=== PATIENT | female | born 1990 | race Two or more races ===

== ENCOUNTER 2017-10-14 05:50 | Day surgery (SDC) | payer OTHER ==
[2017-10-14] VITALS (9 sets, daily range): BP systolic 91–113; BP diastolic 52–66
[~2017-10-14] VITALS: Ht 149.9 cm; Wt 59.0 kg
[~2017-10-14 05:50] MED LIST: ACETAMINOPHEN325 M1 ORAL
[2017-10-14] MEDS ORDERED: LR 1000ml ONE (05:51)
[2017-10-14] MEDS ORDERED: celeBREX 200mg Cap **SURGERY PATIENTS ONLY ORAL ONE (06:00)
[2017-10-14] MEDS ORDERED: ceFAZolin 1gm in D5W 55ml IVP ONE (06:00)
[2017-10-14] MEDS ORDERED: oxyCONTIN 20mg tab ORAL ONE (06:00)
[2017-10-14] MEDS ORDERED: Propofol 200mg/20ml IV ONE (06:45)
[2017-10-14] MEDS ORDERED: Lidocaine 1% MPF 10mg/ml 5ml ONE (06:45)
[2017-10-14] MEDS ORDERED: Ketorolac 30mg Inj ONE ×2 (06:45→07:16)
[2017-10-14] MEDS ORDERED: fentaNYL 100 mcg/2 mL IV ONE (06:46)
[2017-10-14] MEDS ORDERED: Midazolam 2mg/2ml Inj ONE (06:46)
--- NOTE | 2017-10-14 07:12 | Anethesia Preoperative Eval ---
Anesthesia Pre-op PMH/ROS General Date of Evaluation: October 14, 2017 Time of Evaluation: 07:11 Anesthesiologist: right knee pain ASA Score: ASA 1 Mallampati Score Class I : Soft palate, uvula, fauces, pillars visible Class II: Soft palate, uvula, fauces visible Class III: Soft palate, base of uvula visible Class IV: Only hard plate visible Mallampati Classification: Class II Surgeon: melissa Diagnosis: knee pain Surgical Procedure: Right Knee Scope Anesthesia History: none Family History: no anesthesia problems Allergies: Coded Allergies: No Known Allergies (Unverified , 10/13/17) Medications: see eMAR Past Medical History Cardiovascular: Denies: HTN, CAD, [place], valve dz, arrhythmia, other Pulmonary: Denies: asthma, COPD, ALETHA, other Gastrointestinal/Genitourinary: Denies: GERD, CRI, ESRD, other Neurologic/Psychiatric: Denies: dementia, CVA, depression/anxiety, TIA, other Endocrine: Denies: DM, hypothyroidism, steroids, other HEENT: Denies: cataract (L), cataract (R), glaucoma, [place] (L), [place] (R), other Hematology/Immune: Denies: anemia, DVT, bleeding disorder, other Musculoskeletal/Integumentary: Denies: OA, RA, DJD, DDD, edema, other PMH Narrative: back pain PSxH Narrative: none Anesthesia Pre-op Phys. Exam Physician Exam [id number] /[id number] Constitutional: NAD Neurologic: CN 2-12 intact Cardiovascular: RRR Respiratory: CTA Gastrointestinal: S/NT/ND Airway Exam Mallampati Classification 2 Mallampati Score: Class II MO: full ROM: full Dentures: no upper, no lower Anesthesia Pre-op A/P Labs Urine Test Test 10/14/17 06:00 Urine HCG, Qualitative Negative (NEGATIVE) Studies Pre-op Studies: EKG - sr Risk Assessment & Plan Plan: general LMA Status Change Before Surgery: No Pre-Antibiotics Drug: ancef Given Within 1 Hr of Incision: Yes Time Given: 08:00 RENÉE CHRISTIANSON CRNA October 14, 2017 07:12
[2017-10-14] MEDS ORDERED: fentaNYL 100 mcg/2 mL IV PRN (07:15)
[2017-10-14] MEDS ORDERED: Kenalog-40 1ml Vial ONE (07:16)
[2017-10-14] MEDS ORDERED: Morphine Sulfate PF 10 ML ONE (07:16)
[2017-10-14] MEDS ORDERED: Lidocaine 1% 10mg/ml/Epi 0.005mg/ml 30ml vial INJ ONE (07:17)
[2017-10-14] MEDS ORDERED: Bupivacaine 0.25% Inj 30ml INJ ONE (07:17)
--- NOTE | 2017-10-14 07:20 | Pre-Procedure Note/Attestation ---
Pre-Procedure Note/Attestation Complete Prior to Procedure Procedure Narrative: knee diagnostic arthroscopy, possible menisectomy, possible synovectomy Attestation I attest that I discussed the nature of the procedure; its benefits; risks and complications; and alternatives (and the risks and benefits of such alternatives ), prior to the procedure, with the patient (or the patient's legal sales representative publications). I attest that, if there was a reasonable possibility of needing a blood transfusion, the patient (or the patient's legal sales representative publications) was given the [facility] standardized written summary, pursuant to the [place] Blood Safety Act ([place] Health and Safety Code # 1645, as amended). I attest that I re-evaluated the patient just prior to the surgery and that there has been no change in the patient's H&P, except as documented below: Daniel Jorgensen MD October 14, 2017 07:20
--- NOTE | 2017-10-14 07:24 | Operative Note - PDOC ---
Operative Note Operative Note Pre-op Diagnosis: right knee internal derangment possible meniscus tear Procedure: right knee arthroscopy, see op report Post-op Diagnosis: same as pre-op plus Operative Findings: consistent w/pre-op dx studies Specimen: none Complications: none Estimated Blood Loss: none Implant(s) used?: No Daniel Jorgensen MD October 14, 2017 07:24
[2017-10-14] MEDS ORDERED: Tylenol #3 tab (300mg/30mg) ORAL PRN (07:30)
[2017-10-14] MEDS ORDERED: Norco 5mg/325mg tab ORAL PRN ×2 (07:30→09:30)
[2017-10-14] MEDS ORDERED: D5 1/2NS 1,000 ML IV SCH (07:30)
[2017-10-14] MEDS ORDERED: Metoclopramide 10mg/2ml Inj ONE (07:45)
[2017-10-14] MEDS ORDERED: NS Irrig 4000ml IRRIG ONE (08:04)
--- NOTE | 2017-10-14 09:19 | Immediate Post-Op Evaluation ---
Immediate Post-Op Evalulation Immediate Post-Op Evalulation Procedure: knee dx scope Date of Evaluation: October 14, 2017 Time of Evaluation: 08:32 IV Fluids: 300 Blood Pressure Systolic: 112 Blood Pressure Diastolic: 54 Pulse Rate: 74 Respiratory Rate: 14 O2 Sat by Pulse Oximetry: 99 Temperature (Fahrenheit): 97.7 Pain Score (1-10): 0 Nausea: No Vomiting: No Complications none Patient Status: awake, reacts, patent Hydration Status: adequate Drug: ancef Given Within 1 Hr of Incision: Yes Time Given: 08:00 RENÉE CHRISTIANSON CRNA October 14, 2017 09:19
--- NOTE | 2017-10-14 09:20 | 48 Hour Post Anesthesia Eval ---
Post Anesthesia Evaluation Procedure: knee dx scope Date of Evaluation: October 14, 2017 Time of Evaluation: 09:19 Blood Pressure Systolic: 107 0: 59 Pulse Rate: 70 Respiratory Rate: 14 O2 Sat by Pulse Oximetry: 100 Airway: patent Nausea: No Vomiting: No Hydration Status: adequate Cardiopulmonary Status: stable Mental Status/LOC: patient returned to baseline Follow-up Care/Observations: na Post-Anesthesia Complications: none Follow-up care needed: N/A RENÉE CHRISTIANSON CRNA October 14, 2017 09:20
--- NOTE | 2017-10-14 13:00 | Operative Note - Dictated ---
DATE OF OPERATION: 10/14/2017 PREOPERATIVE DIAGNOSES: 1. Right knee internal derangement. 2. Hypertrophic fat pad syndrome. 3. Right discoid lateral meniscus. POSTOPERATIVE DIAGNOSES: 1. Right knee internal derangement. 2. Hypertrophic fat pad syndrome. 3. Right discoid lateral meniscus. PROCEDURES: 1. Right knee diagnostic arthroscopy. 2. Synovectomy of lateral and patellofemoral compartment. SURGEON: Daniel Jorgensen M.D. ANESTHESIA: MAC with local. INDICATION FOR PROCEDURE: The patient is a pleasant female, who has had chronic right knee pain. She had MRI, which showed some intrameniscal degeneration of posterior horn of medial meniscus. She failed conservative treatment. She was thought to have some patellofemoral syndrome which did not improve with physical therapy. After failing conservative treatment, she elected to undergo right knee diagnostic arthroscopy, synovectomy with possible meniscectomy. Risks, limitations, expectations, complications of procedure were discussed in detail. All questions were addressed. DESCRIPTION OF PROCEDURE: An informed consent was obtained. The patient was brought to the operating room. We placed the patient under monitored anesthesia control. Tourniquet was applied on the right proximal thigh. Right leg was prepped and draped in sterile manner. A 20 mL of Marcaine was injected in the right knee. Portal sites were injected with 1% lidocaine with epinephrine. Inferolateral stab incision was then made. Trocar was introduced into the knee joint. Of note, there was significant resistance secondary to scar tissue in the lateral gutter. The patellofemoral compartment was entered. There was hypertrophic fat pad, synovial tissue. Medial gutter was entered and was free of any loose bodies. Medial working portal was established. Synovectomy was performed in the anterior portion of the medial compartment, Intercondylar notch, and lateral compartment. Medial meniscus was probed and noted to be intact. The ACL was probed and noted to be intact. Lateral compartment was entered. There was noted to be discoid meniscus type 3. It was probed. There was no obvious rent or tear in the meniscus. Camera was then placed subsequently in the patellofemoral compartment. Synovectomy of retropatellar fat pad was completed. Once that was done, the instruments were removed. Portal sites were closed with 3-0 Monocryl sutures. Intraarticular cocktail injection was administered. The patient was awoken and taken to recovery room with stable vital signs. ESTIMATED BLOOD LOSS: None. COMPLICATIONS: None. SPECIMENS: None. Daniel Jorgensen M.D. DR: Alex JOB#: [id number] CC: [id number]
== END 2017-10-14 12:05 | disposition home or self-care (01) ==
LOC: SUR 05:50
DX: M23.91 Unspecified internal derangement of right knee (principal); M23.300 Other meniscus derangements, unspecified lateral meniscus, right knee; M67.261 Synovial hypertrophy, not elsewhere classified, right lower leg
CPT/HCPCS: 29876; 81025; J0690; J1885; J2250; J2274; J2405; J2704; J3010; J3301; J3490; J7120; J2765